=== PATIENT | female | born 1970 | race American Indian/Alaskan Native ===

== ENCOUNTER 2017-12-02 10:41 | Emergency (ER) | payer OTHER ==
[2017-12-02 10:45] VITALS: BP 141/77; BMI 24.5
[2017-12-02] MEDS ORDERED: ACETAMINOPHEN 325 MG TABLET (FP) PO ONE (10:46)
--- NOTE | 2017-12-02 11:22 | PDOC ---
History of Present Illness - General Chief Complaint: Cold Symptoms Stated Complaint: FLU LIKE SYMPTOMS Time Seen by Provider: 12/02/17 11:07 History Source: Patient Exam Limitations: No Limitations - History of Present Illness Initial Comments: 12/02/17 12:12 Best Contact:[phone] Pmhx: N/A Pshx: 2003/abdominoplasty Allergies:NKDA 47-year-old female presents to the emergency department complaining of fever/ Tmax 102.1, chills, general malaise, sore throat, nonproductive cough 3 days without headache, dizziness, lightheadedness, nausea/vomiting, facial pains, rhinorrhea, nasal congestion, earaches, chest pain, shortness of breath, flank pains, abdominal pains, urinary symptoms. Patient states she took Tylenol 2 days ago with relief. Patient denies any other symptoms patient is able to eat and drink without any difficulties. Past History - Past Medical History Allergies/Adverse Reactions: Allergies Allergy/AdvReac Type Severity Reaction Status Date / Time No Known Allergies Allergy Verified 12/02/17 10:42 Home Medications: Ambulatory Orders Azithromycin [Zithromax -] 250 mg PO UTDICT #6 tab 12/02/17 Methylprednisolone [Medrol Dose Mateo] 4 mg PO ASDIR #21 tablet 12/02/17 COPD: No - Suicide/Smoking/Psychosocial Hx Smoking History: Never smoked Have you smoked in the past 12 months: No Information on smoking cessation initiated: No Hx Alcohol Use: Yes (SOCIAL) Drug/Substance Use Hx: No Substance Use Type: None Review of Systems - Review of Systems Able to Perform ROS?: Yes Comments:: 12/02/17 12:08 CONSTITUTIONAL: +fever/chills, Generalized malaise Absent: diaphoresis, malaise, loss of appetite HEENT: +throat pain Absent: rhinorrhea, nasal congestion, throat swelling, difficulty swallowing, mouth swelling, ear pain, eye pain, visual Changes CARDIOVASCULAR: Absent: chest pain, loss of consciousness, palpitations, irregular heart rate, peripheral edema RESPIRATORY: Absent: cough, shortness of breath, dyspnea with exertion, orthopnea, wheezing, stridor, hemoptysis GASTROINTESTINAL: Absent: abdominal pain, abdominal distension, nausea, vomiting, diarrhea, constipation, melena, hematochezia GENITOURINARY: Absent: dysuria, frequency, urgency, hesitancy, hematuria, flank pain, genital pain MUSCULOSKELETAL: Absent: myalgia, arthralgia, joint swelling SKIN: Absent: rash, itching, pallor Is the patient limited Tristanian proficient: No *Physical Exam - Vital Signs Last Vital Signs Temp Pulse Resp BP Pulse Ox 103.0 F H 113 H 18 141/77 100 12/02/17 10:43 12/02/17 10:43 12/02/17 10:43 12/02/17 10:43 12/02/17 10:43 - Physical Exam Comments: 12/02/17 12:08 GENERAL: Well developed, well nourished. Awake and alert. No acute distress. HEENT: Normocephalic, atraumatic. PERRLA, EOMI. No conjunctival pallor. Sclera are non- icteric. Moist mucous membranes. Oropharynx is clear. NECK: Supple. Full ROM. No JVD. Carotid pulses 2+ and symmetric, without bruits. No thyromegaly. No lymphadenopathy. CARDIOVASCULAR: Regular rate and rhythm. No murmurs, rubs, or gallops. Distal pulses are 2+ and symmetric. PULMONARY: No evidence of respiratory distress. Lungs clear to auscultation bilaterally. No wheezing, rales or rhonchi. ABDOMINAL: Soft. Non-tender. Non-distended. No rebound or guarding. No organomegaly. Normoactive bowel sounds. MUSCULOSKELETAL Normal range of motion at all joints. No bony deformities or tenderness. No CVA tenderness. EXTREMITIES: No cyanosis. No clubbing. No edema. No calf tenderness. SKIN: Warm and dry. Normal capillary refill. No rashes. No jaundice. NEUROLOGICAL: Alert, awake, appropriate. Cranial nerves 2-12 intact. No deficits to light touch and temperature in face, upper extremities and lower extremities. No motor deficits in the in face, upper extremities and lower extremities. Normoreflexic in the upper and lower extremities. Normal speech. Toes are down- going bilaterally. Gait is normal without ataxia. PSYCHIATRIC: Cooperative. Good eye contact. Appropriate mood and affect. ED Treatment Course - Medications Given in the ED: ED Medications Discontinued Medications Generic Name Dose Route Start Last Admin Trade Name Freq PRN Reason Stop Dose Admin Acetaminophen 650 mg 12/02/17 10:46 12/02/17 10:47 Tylenol - PO 12/02/17 10:47 650 mg NOW ONE Administration *DC/Admit/Observation/Transfer Diagnosis at time of Disposition: Influenza A, Viral pharyngitis Acute bronchitis Qualifiers: Bronchitis organism: unspecified organism Qualified Code(s): J20.9 - Acute bronchitis, unspecified - Discharge Dispostion Disposition: HOME Condition at time of disposition: Stable Admit: No - Referrals Referrals: Jayson Garcia [Primary Care Provider] - - Patient Instructions Printed Discharge Instructions: DI for Acute Bronchitis, DI for Viral Pharyngitis, DI for H1N1 Influenza -- Adult Additional Instructions: Rest increase fluids Take Tylenol alternating with Motrin as needed for pain or fever Follow-up with your physician within 48 hours Gargle water Take the antibiotics for your acute bronchitis/Z-Mateo Take the Medrol Dosepak until completion Return back to the emergency department for severe/persistent/worsening/ concerning symptoms - Post Discharge Activity Forms/Work/School Notes: Back to Work
[2017-12-02 11:43] VITALS: PULSE 104; TEMP 101.2
== END 2017-12-02 12:22 | disposition home or self-care (01) ==
LOC: JERFT 10:41
DX: J10.1 Influenza due to other identified influenza virus with other respiratory manifestations (principal)
CPT/HCPCS: 71046-TC-FY; 87070; 87430; 87804; 99281-25

== ENCOUNTER 2021-02-10 13:19 | Emergency (ER) | payer OTHER ==
[2021-02-10 13:34] VITALS: TEMP 98.1; BMI 23.3
[2021-02-10] MEDS ORDERED: DEXAMETHASONE LIQUID 0.5 MG/5 ML PO ONE (14:02)
[2021-02-10] MEDS ORDERED: DEXAMETHASONE SOD PHOSPHATE 10 MG/1 ML VIAL ONE ×2 (14:13→14:16)
[2021-02-10 15:37] VITALS: BP 130/87; PULSE 86
== END 2021-02-10 15:37 | disposition home or self-care (01) ==
LOC: JER 13:19
PROC: 3E033GC Introduction of Other Therapeutic Substance into Peripheral Vein, Percutaneous Approach (ICD-10-PCS; principal; 2021-02-10)
DX: J02.9 Acute pharyngitis, unspecified (principal); Z11.52 Encounter for screening for COVID-19
CPT/HCPCS: 87880; 99284-25; C9803; U0003; U0005